=== PATIENT | female | born 1950 | race Two or more races ===

== ENCOUNTER 2018-08-06 21:08 | Emergency (ER) | payer OTHER ==
[~2018-08-06] VITALS: Ht 160 cm; Wt 60.8 kg
--- NOTE | 2018-08-06 21:08 | NUR ---
MIDEPIGASTRIC TO LT SIDE CP X 2-3 DAYS. PT IS HYPERTENSIVE BUT OTHERWISE VSS NO ACUTE DISTRESS NOTED AT THIS TIME. PT IS ALERT AND ORIENTED X4 ABLE TO MAKE NEEDS KNOWN JORDANIAN SPEAKING ONLY. SKIN WARM AND INTACT. WILL CONTINUE TO MONITOR FOR ANY CHANGES DURING THE SHIFT.
--- NOTE | 2018-08-06 21:09 | NUR ---
ER MD FLORES AT BEDSIDE
--- NOTE | 2018-08-06 21:38 | NUR ---
EKG AT BEDSIDE
--- NOTE | 2018-08-06 21:54 | NUR ---
BLOOD SENT TO LAB
--- NOTE | 2018-08-06 22:00 | NUR ---
FISCAL SERVICES MANAGER AT BEDSIDE
[2018-08-06 22:15] LABS: BASOPHILS % (AUTO) 0.7 % (0.0-2.0); EOSINOPHILS % (AUTO) 2.6 % (0.0-6.0); HEMATOCRIT 32 % (33-45); HEMOGLOBIN 10.8 g/dL (11.5-14.8); LYMPHOCYTES # (AUTO) 1.9 /CMM (0.8-4.8); LYMPHOCYTES % (AUTO) 44.7 % (20.0-44.0); MEAN CORPUSCULAR HGB CONC 34 g/dl (31.0-36.0); MEAN CORPUSCULAR VOLUME 80 fL (82-100); MONOCYTES # (AUTO) 0.4 /CMM (0.1-1.30); MONOCYTES % (AUTO) 9.3 % (2.0-12.0); NEUTROPHILS # (AUTO) 1.8 /CMM (1.8-8.9); NEUTROPHILS % (AUTO) 42.7 % (43.0-81.0); PLATELET COUNT (AUTO) 133 /CMM (150-450); WHITE BLOOD COUNT (AUTO) 4.3 K/uL (4.3-11.0)
[2018-08-06 22:22] LABS: CALCIUM, SERUM 9.4 mg/dL (8.5-10.1); CARBON DIOXIDE 28 mmol/L (21-32); CHLORIDE 108 mmol/L (98-107); CREATININE 0.6 mg/dL (0.6-1.3); GLUCOSE 123 mg/dL (74-106); POTASSIUM 4.5 mmol/L (3.5-5.1); SODIUM SERUM 143 mmol/L (136-145); UREA NITROGEN, BLOOD 19 mg/dL (7-18)
[2018-08-06] MEDS ORDERED: NITROGLYCERIN 0.4 MG/TAB BOTTLE ONE (22:22)
[2018-08-06] MEDS ORDERED: ASPIRIN 325 MG TABLET ONE (22:23)
[2018-08-06] MEDS ORDERED: NITROGLYCERIN 0.4 MG/TAB BOTTLE SL ONE (22:30)
[2018-08-06] MEDS ORDERED: ASPIRIN 325 MG TABLET PO ONE (22:30)
[2018-08-06] MEDS ORDERED: METH10TA7 PO (23:48)
[2018-08-06] MEDS ORDERED: LISI-603 PO (23:48)
[2018-08-06] MEDS ORDERED: METO-357 PO (23:48)
--- NOTE | 2018-08-07 01:35 | NUR ---
PATIENT HAS SIGNED AMA. MYSELF AND ER MD WYMAN BOTH ATTEMPTED TO EXPLAIN THE SITUATION OF WHEN/HOW/WHERE THE PATIENT WILL BE TRANSFERRED. PT STARTED TO BE ANGRY AND REFUSE TO LISTEN TO INSTRUCTIONS STATING "PLEASE GIVE ME THE PAPER TO SIGN HER OUT, THIS IS REDICULOUS".
[2018-08-07 01:43] VITALS: BP 144/67
== END 2018-08-07 01:44 | disposition left against medical advice (07) ==
LOC: ER 21:11
DX: R07.89 Other chest pain (principal); I51.7 Cardiomegaly; Z98.890 Other specified postprocedural states; Z79.899 Other long term (current) drug therapy; Z85.9 Personal history of malignant neoplasm, unspecified
CPT/HCPCS: 36415; 71045; 80048; 83880; 84484; 85025; 85730; 93005; 99284; A4606; Z7610

== ENCOUNTER → 2021-10-12 | Outpatient (CLI) | payer MEDICARE, MEDICAID ==
[~2021-10-12] MED LIST: ASPI-1420 PO; LISI20TA30 PO; METH10TA7 PO; METO-357 PO
== END | disposition home or self-care (01) ==
LOC: CT 09:09
PROVIDERS: ATTEND Internal Medicine Interventional Cardiology
DX: J98.11 Atelectasis (principal); R91.8 Other nonspecific abnormal finding of lung field; M47.814 Spondylosis without myelopathy or radiculopathy, thoracic region; Z90.49 Acquired absence of other specified parts of digestive tract
CPT/HCPCS: 71250-TC

== ENCOUNTER 2022-08-28 12:54 | Emergency (ER) | payer MEDICARE, OTHER ==
[~2022-08-28] VITALS: Ht 154.9 cm; Wt 79.4 kg
--- NOTE | 2022-08-28 13:05 | NUR ---
VAGINAL BLEEDING SINCE YESTERDAY
[2022-08-28 14:12] LABS: ALBUMIN 3.3 g/dL (3.4-5.0); BILIRUBIN,DIRECT 0.1 mg/dL (0.0-0.2); BILIRUBIN,TOTAL 0.2 mg/dL (0.2-1.0); CALCIUM, SERUM 8.4 mg/dL (8.5-10.1); CREATININE 0.9 mg/dL (0.6-1.3); POTASSIUM 3.9 mmol/L (3.5-5.1); TOTAL PROTEIN, SERUM 6.9 g/dL (6.4-8.2)
[2022-08-28 14:17] LABS: HEMATOCRIT 33 % (33-45); HEMOGLOBIN 10.8 g/dL (11.5-14.8); MEAN CORPUSCULAR HGB CONC 33 g/dl (31.0-36.0); MEAN CORPUSCULAR VOLUME 85 fL (82-100); PLATELET COUNT (AUTO) 191 K/uL (150-450); RED BLOOD CELL COUNT(AUTO) 3.89 MIL/uL (4.0-5.2); WHITE BLOOD COUNT (AUTO) 5.2 K/uL (4.3-11.0)
[2022-08-28 17:46] LABS: BILIRUBIN,URINE NEGATIVE (NEGATIVE); COLOR,URINE YELLOW (YELLOW); LEUKOCYTE ESTERASE ,URINE NEGATIVE (NEGATIVE); NITRITE, URINE NEGATIVE (NEGATIVE); PH,URINE 5.5 (5.0-8.0); PROTEIN,URINE NEGATIVE (NEGATIVE); UGLUCOSE 3+ mg/dL (NEGATIVE); UROBILINOGEN,URINE 0.2 EU/dL (0.2)
[2022-08-28 18:05] LABS: BACTERIA,URINE RARE /HPF (None Seen); RBC,URINE 51-80 /HPF (0-2); SQUAMOUS EPITHELIAL CELL,UR 0-2 /HPF (None Seen); WBC,URINE 0-2 /HPF (0-3)
[2022-08-28 18:06] LABS: MUCUS,URINE Few /LPF (None Seen)
--- NOTE | 2022-08-28 19:45 | NUR ---
Patient discharged to home in stable condition. Written and verbal after care instructions given. Patient verbalizes understanding of instruction.
[2022-08-28 19:46] VITALS: BP 135/66
[2022-08-29 03:50] LABS: BASOPHILS % (MANUAL) 0 % (0.0-2.0); EOSINOPHILS % (MANUAL) 0 % (0-4); LYMPHOCYTES % (MANUAL) 21 % (16-48); MONOCYTES % (MANUAL) 4 % (0-11.0); NEUTROPHILS % (MANUAL) 75 (42-76)
== END 2022-08-28 19:46 | disposition home or self-care (01) ==
LOC: ER 12:56
DX: N93.9 Abnormal uterine and vaginal bleeding, unspecified (principal); I10 Essential (primary) hypertension; E11.9 Type 2 diabetes mellitus without complications; Z90.49 Acquired absence of other specified parts of digestive tract; Z79.82 Long term (current) use of aspirin; Z85.89 Personal history of malignant neoplasm of other organs and systems
CPT/HCPCS: 36415; 76856-TC; 80048-TC; 80076-TC; 81001; 85025-TC